=== PATIENT | female | born 1950 | race Caucasian/White ===

== ENCOUNTER → 2016-11-30 | Outpatient (CLI) | payer BC, OTHER ==
[~2016-11-30] VITALS: Ht 160 cm; Wt 79.4 kg
[~2016-11-30] MED LIST: ALDACTONE25 MG PO; ALVESCO6.1 G1 IH; CITRACAL + BON1 EACH PO; FOLIC ACID1 MG PO; GLUCOPHAGE500 MG PO; KLOR-CON 1010 ME1 PO; LASIX20 MG PO; MAGNESIUM200 MG PO; PANTOPRAZOLE SO20 MG PO; PLAQUENIL200 MG PO; PRAVACHOL20 MG PO; SINGULAIR10 MG PO; SULFAZINE500 M1 PO; SYNTHROID88 MCG PO; TENORMIN25 MG PO; VITAMIN D2000 UNI1 PO; XOPENEX HF200 INHALA IH; XOPENEX1.25 MG/3 IH; ZESTRIL2.5 MG PO; ZOFRAN4 MG PO
[2016-11-30 15:05] LABS: POINT-OF-CARE METER ID UU14107333
== END | disposition home or self-care (01) ==
LOC: AMB 14:00
PROVIDERS: Specialist
DX: K62.5 Hemorrhage of anus and rectum (principal); K64.8 Other hemorrhoids; K58.0 Irritable bowel syndrome with diarrhea; R10.11 Right upper quadrant pain; J45.909 Unspecified asthma, uncomplicated; K21.9 Gastro-esophageal reflux disease without esophagitis; Z86.010 Personal history of colon polyps; E11.9 Type 2 diabetes mellitus without complications; Z79.84 Long term (current) use of oral hypoglycemic drugs; I10 Essential (primary) hypertension; E66.9 Obesity, unspecified; Z68.31 Body mass index [BMI] 31.0-31.9, adult; E03.9 Hypothyroidism, unspecified; Z88.8 Allergy status to other drugs, medicaments and biological substances
CPT/HCPCS: 82948; 88305